=== PATIENT | male | born 1965 | race Caucasian/White ===

== ENCOUNTER 2022-04-02 07:34 | Day surgery (SDC) | payer OTHER, SELFPAY ==
[2022-03-29 14:31] VITALS: BMI 37.3
--- NOTE | 2022-04-02 07:17 | W.PM.OPSFHP ---
Same Day Surgery H&P Indication for Procedure/HPI DATE OF PROCEDURE: April 02, 2022 CHIEF COMPLAINT/INDICATIONFOR SURGICAL PROCEDURE: Dysphagia PREOP DIAGNOSIS: Dysphagia PLANNED PROCEDURE: Operation Date: 04/02/22 09:00 Proposed Procedures p EGD Dilation W/ Bougie(Not Applicable) - Elder Villafana MD Medications/Allergies* Home Medications Medication Instructions Recorded Confirmed Type albuterol sulfate 90 mcg/actuation 2 puff INHALATION Q6H PRN 03/06/22 03/29/22 History aerosol inhaler cyclobenzaprine 10 mg tablet 10 mg PO BEDTIME PRN tab 03/06/22 03/29/22 History Allergies/Adverse Reactions Allergy/AdvReac Type Severity Reaction Status Date / Time No Known Allergies Allergy Unverified 03/06/22 13:56 Pertinent History/Comorbid Conditions* Medical History (Updated 03/06/22 @ 14:32 by Elder Villafana MD) Hx of colonic polyp Family History (Updated 03/06/22 @ 14:02 by Janet Padilla) Diabetes CAD (coronary artery disease) Cancer Hypertension Stroke Social History Smoking and tobacco status: never smoked Alcohol intake: current Alcohol intake frequency: few times a week Pertinent Exam Findings alert, oriented x 3, clear to auscultation bilaterally, regular rate & rhythm, operative site marked and procedure specific exam findings Recommendations Surgery/Procedure today Coding Level of Care Code Acute 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
[2022-04-02] MEDS: sodium chloride 0.9% 1,000 ML 30 ML IV (07:42)
[2022-04-02 07:48] VITALS: BP 161/112; PULSE 66; RESP 18; TEMP 36.6; O2SAT 96
--- NOTE | 2022-04-02 09:06 | ANES.PREANE2 ---
Pre-Anesthetic Assessment Height/Weight: Height 1.78 m Weight 117.934 kg Temp Pulse Resp BP Pulse Ox 97.9 F 66 18 161/112 96 04/02/22 07:48 04/02/22 07:48 04/02/22 07:48 04/02/22 07:48 04/02/22 07:48 Preop Diagnosis: Dysphagia Operation Date: 04/02/22 09:00 Proposed Procedures p EGD Dilation W/ Bougie(Not Applicable) - Elder Villafana MD Familial anesthetic complications: none Was Beta Buck taken within 24 hours: N/A Was Clonidine taken within 24 hours: N/A Last intake: Intake Last Liquid Date 04/01/22 Last Liquid Time 19:00 Last Solid Date 04/01/22 Last Solid Time 19:00 Social No alcohol and No tobacco Exam alert, oriented x 3, clear to auscultation bilaterally and regular rate & rhythm Airway Submandibular: within normal limits Cervical ROM: within normal limits Mallampati: Class II Dentition: full Pulmonary Asthma (well controlled ) CV/HEM None reported None reported Hepatic None reported GI Gastroesophageal Reflux Disease dysphagia Metabolic None reported Musc/skel None reported Neuropsych None reported Anesthetic Plan ASA status: 2 Anesthesia: Anesthesia Evaluation and MAC Other: I discussed with the patient risks, goals, and benefits of MAC and general anesthesia. We discussed spectrum of MAC anesthesia including conversion to general as well as possibility of recall of intraoperative stimuli including discomfort/pain. Patient agrees to proceed with MAC. Medications/Allergies Home Medications Medication Instructions Recorded Confirmed Last Taken Type albuterol sulfate 90 mcg/actuation 2 puff INHALATION Q6H PRN 03/06/22 03/29/22 02/21/22 History aerosol inhaler cyclobenzaprine 10 mg tablet 10 mg PO BEDTIME PRN tab 03/06/22 04/02/22 03/21/22 History Allergies Allergy/AdvReac Type Severity Reaction Status Date / Time No Known Allergies Allergy Unverified 03/06/22 13:56 PFSH Anesthesia Medical History Hx of colonic polyp Family History Other CAD (coronary artery disease) Cancer Diabetes Hypertension Stroke Social History Smoking and tobacco status: never smoked Alcohol intake: current Alcohol intake frequency: few times a week Data Anesthesia Cardiac Studies: No Data to Display
[2022-04-02 09:31] VITALS: BP 130/92; PULSE 88; RESP 14; TEMP 36.2; O2SAT 92
[2022-04-02 09:46] VITALS: BP 124/84; PULSE 73; RESP 16; O2SAT 95
--- NOTE | 2022-04-02 13:41 | ANE.PACU2 ---
Inpatient post-anesthesia follow up: Airway intact: Yes Vital signs: Temperature 97.1 F Pulse Rate 73 Respiratory Rate 16 Blood Pressure 124/84 Pulse Oximetry 95 Oxygen Delivery Me thod Room Air Oxygen Flow Rate 3.5 Fraction of Inspir ed Oxygen Hydration adequate: Yes Nausea and vomiting: No Pain level: 1 Mental status: Baseline
[2022-04-03 10:42] LABS: H. Pylori / CLO Test Negative
== END 2022-04-02 09:54 | disposition home or self-care (01) ==
PROVIDERS: Visit Provider Internal Medicine
DX: R13.10 Dysphagia, unspecified (principal); Z86.010 Personal history of colon polyps; K21.00 Gastro-esophageal reflux disease with esophagitis, without bleeding; K29.70 Gastritis, unspecified, without bleeding
CPT/HCPCS: 43239; 87077; J2704; J7030

== ENCOUNTER 2022-08-17 14:03 | Outpatient (CLI) | payer OTHER, SELFPAY ==
--- NOTE | 2022-08-17 14:16 | MM_ITS ---
WS: [id number] Left breast diagnostic 3D tomosynthesis digital mammogram, 08/17/2022 Clinical Data: MASS IN LT BREAST Comparison: None. Findings: The left breast is enlarged. The changes of gynecomastia are seen posterior to the areola. There are no abnormal masses, cysts or secondary signs of carcinoma. MM/[place] [id number] Impression: Gynecomastia of the left breast. Clinical follow-up is recommended. BIRADS: 2-Benign FOLLOW UP: See Report The CAD frickertron checker was used.
== END 2022-08-17 14:04 | disposition home or self-care (01) ==
PROVIDERS: Visit Provider Emergency Medicine Emergency Medical Services
DX: N63.25 Unspecified lump in the left breast, overlapping quadrants (principal)
CPT/HCPCS: 77061; G0279